=== PATIENT | male | born 1970 | race Caucasian/White ===

== ENCOUNTER 2021-07-07 08:43 | Emergency (ER) | payer OTHER, SELFPAY ==
[2021-07-07 08:49] VITALS: BP 155/114; PULSE 104; RESP 18; TEMP 36.8; O2SAT 98
--- NOTE | 2021-07-07 09:04 | W.ED.GENAD ---
Discharge Plan Disposition Patient Disposition: HOME Condition: Improving Discharge Details Clinical Impression: Laceration Primary Care Provider: Earline,Local ED Provider: Howard Curran Home Meds and New Rx's Prescriptions: Continued esomeprazole magnesium [Nexium 24HR] 20 mg Capsule,Delayed Release(Dr/Ec) 20 mg PO DAILY 0RF Discharge Instructions Instructions: Laceration (ED) Additional Instructions: Please follow-up with your primary care physician as needed. Return to the emergency department for any worsening symptoms Medical Decision Making 51-year-old male denies past medical history presents after trip and fall at 3 AM sustaining laceration to right brow and occipital scalp, no midline spinal tenderness, neurologically intact, hemodynamically stable alert oriented, minimally gaping occipital scalp laceration, gaping right inferior brow laceration, no evidence of ocular entrapment or orbital fracture, TMs are unremarkable, likely simple mechanical fall and laceration, low suspicion for intracranial hemorrhage ocular injury orbital fracture or facial fracture, low suspicion for cervical spine injury given normal neurologic exam and no midline spinal tenderness normal range of motion. Patient unclear regarding last tetanus booster, will provide tetanus booster today, will anesthetize wound irrigate wound and closed with likely absorbable sutures. Home care instructions and return precautions to be given 10: 53 patient resting comfortably no acute distress neurologically intact. Simple interrupted sutures applied to brow and scalp lacerations. Good closure home care instructions. Patient's friends are here to pick him up he will follow-up when he returns home to [place]. Return to [facility] General Date/Time Provider Initiated Documentation: 07/07/21 08:56. [facility] Narrative: 51-year-old male denies past medical history endorses accidentally tripping over a pair of boots last night around 3 AM, falling forward hitting the bed, lacerating his right brow above his eye as well as the back of his head, no loss of consciousness, patient does endorse mild neck discomfort, denies neurologic denies headache nausea vomiting or visual changes. Denies blood thinner use. Does endorse that he had a couple drinks during this event however was not extremely intoxicated. Related Data Home Medications Medication Instructions Recorded Confirmed esomeprazole magnesium 20 mg 20 mg PO DAILY 07/07/21 07/07/21 capsule,delayed release (Nexium 24HR) Allergies Allergy/AdvReac Type Severity Reaction Status Date / Time No Known Allergies Allergy Unverified 07/07/21 08:53 General Stated Complaint: Laceration ALEJO: 3 Review of Systems Narrative: Review of Systems Constitutional: negative Eyes: negative ENT: negative Cardiovascular: negative Respiratory: negative Gastrointestinal: negative : negative Musculoskeletal: Neck pain Skin: Brow laceration, scalp laceration Neurologic: negative Psych: negative PFSH All Active Problems (Updated 07/07/21 @ 10:54 by Howard Curran MD) Laceration (Acute) Social History Smoking/Tobacco Use Status: Current-Occasional Tobacco Type: smokeless tobacco Smoking risk assessment performed?: Yes Alcohol Intake: current Alcohol Intake frequency: a few times a week Drug use: Occasionally Substance use type: marijuana Do you feel safe at home: Yes Do you feel safe in your relationship?: Yes Exam Narrative Exam Narrative: Physical Examination General: alert, awake, cooperative, resting comfortably, no acute distress HEENT: normocephalic, atraumatic; PERRL, EOM intact, conjunctiva normal; no nasal discharge; moist mucous membranes, oral and pharyngeal mucosa normal, tolerating secretions; TMs unremarkable Neck: supple, trachea midline; full ROM; no midline spinal tenderness Chest: normal to inspection Respiratory: normal respiratory effort, speaking in full sentences, clear to auscultation, no wheezing, rales or rhonchi Cardiac: regular rate, regular rhythm, S1S2 intact, no murmurs rubs or gallops GI: abdomen soft, non-tender, non-distended; no palpable mass or hepatosplenomegaly Skin: 5 cm gaping laceration to inferior aspect of right brow hemostatic no foreign body, 10 cm minimally gaping laceration to occipital scalp hemostatic no foreign body Neuro: AAOx3, normal speech, moving all extremities; moving all extremities, no focal weakness Extremities: No signs of trauma Psych: Appropriate mood and affect Course Vital Signs Vital signs: Vital Signs Temperature 36.8 C 07/07/21 08:49 Pulse 104 H 07/07/21 08:49 Respiratory Rate 18 07/07/21 08:49 Blood Pressure 155/114 H 07/07/21 08:49 Pulse Oximetry 98 07/07/21 08:49 Temperature 36.8 C 07/07/21 08:49 Temperature Source Temporal Artery Scan 07/07/21 08:49 Pulse 104 H 07/07/21 08:49 Respiratory Rate 18 07/07/21 08:49 Respiratory Effort Non-Labored 07/07/21 08:54 Blood Pressure 155/114 H 07/07/21 08:49 Blood Pressure Position Sitting 07/07/21 08:49 Pulse Oximetry 98 07/07/21 08:49 Oxygen Delivery Method Room Air 07/07/21 08:49 Oxygen Flow Rate 0 07/07/21 08:49 Procedures Laceration Laceration 1: Site: face (Right inferior brow) Side (If applicable): right Size (cm): 5 Description: linear Depth: simple, single layer Local Anesthetic: Lidocaine 1% Pre-repair: wound explored and irrigated extensively Skin layer closed with: vicryl Size (cm): 5-0 Number of sutures: 8 Technique: simple, interrupted Laceration 2: Site: scalp Size (cm): 10 Description: linear Depth: simple, single layer Local Anesthetic: Lidocaine 1% Amount of anesthesia used (mL): 2 Pre-repair: wound explored and irrigated extensively Skin layer closed with: vicryl Size (cm): 5-0 Number of sutures: 10 Technique: simple, interrupted PAWSS Have you Been Recently Intoxicated or Drunk Within the Last 30 days?: Yes Have you Ever Experienced Previous Episodes of Alcohol Withdrawal?: No Have you ever Experienced Withdrawal Seizures?: No Have you ever Experienced Delirium Tremens(DT)s?: No Have you ever undergone Alcohol Rehabilitation Treatment (i.e, inpt ot outpatient treatment programs)?: No Have you ever Experienced Blackouts?: No Have you ever Combined Alcohol with other Downers within the last 90 days?: No Have you ever Combined Alcohol with any other Substance of Abuse during the last 90 days?: No Positive Blood Alcohol level on Presentation? [PCS.BAL]: No Evidence of Increased Autonomic Activity (i.e. HR>120, tremor, sweating, agitation, nausea)?: No Result: 1
[2021-07-07] MEDS: Lidocaine 1% Pres-Free 5 ML VIAL IJ (10:00)
[2021-07-07 10:54] VITALS: BP 148/112; PULSE 89; TEMP 36.9; O2SAT 97
== END 2021-07-07 10:57 | disposition home or self-care (01) ==
PROVIDERS: Emergency Provider Emergency Medicine
DX: S01.111A Laceration without foreign body of right eyelid and periocular area, initial encounter (principal); S01.01XA Laceration without foreign body of scalp, initial encounter; W01.190A Fall on same level from slipping, tripping and stumbling with subsequent striking against furniture, initial encounter
CPT/HCPCS: 12004; 12013; 90471